=== PATIENT | male | born 1960 | race Caucasian/White ===

== ENCOUNTER → 2018-06-25 11:30 | Outpatient (CLI) | payer OTHER, SELFPAY ==
--- NOTE | 2018-06-25 | DI.US.S_ITS ---
PROCEDURE: US ABDOMEN COMPLETE INDICATIONS: EPIGASTRIC PAIN TECHNIQUE: Real-time scanning was performed of the abdominal and retroperitoneal organs, with image documentation. COMPARISON: None. FINDINGS: Liver: Liver is normal in size and appears hypoechoic. Gallbladder: Gallbladder has been removed. Biliary ducts: Intrahepatic bile ducts are non-dilated. Extrahepatic bile duct caliber measures 4.5 mm. Normal is 6-7 mm or less in diameter, or 10 mm or less post-cholecystectomy. Pancreas: Not visualized. Spleen: Spleen is normal in size and homogeneous in echotexture. Kidneys: Kidneys are normal in size and echotexture. Right kidney measures 11.3 cm long; left kidney measures 12.0 cm long. No hydronephrosis or nephrolithiasis. No solid masses. Within the right kidney there is a 12 less than decubitus 9 mm exophytic focus of hypo-echogenicity. There is no definitive posterior enhancement. Aorta: Visualized aorta is normal in caliber at less than 3 cm. Iliacs: Proximal common iliac arteries are normal in caliber at less than 2.5 cm. IVC: Intrahepatic inferior vena cava is patent. Miscellaneous: No free abdominal fluid. IMPRESSION: 1. Hypoechoic appearing liver as above. This is somewhat nonspecific. While this could be secondary to variation, infiltrative disease cannot be excluded. As clinically indicated, CT is recommended for further evaluation. 2. Hypoechoic renal mass as above. It does not demonstrate characteristic cystic properties. CT is recommended for further evaluation. Dictated by: Margie Loco M.D. on 06/25/2018 at 19:04 Approved by: Margie Loco M.D. on 06/25/2018 at 19:07
== END ==
PROVIDERS: Visit Provider Family Medicine
DX: R10.13 Epigastric pain (principal); N28.89 Other specified disorders of kidney and ureter; Z90.49 Acquired absence of other specified parts of digestive tract
CPT/HCPCS: 76700

== ENCOUNTER → 2018-07-02 10:37 | Outpatient (CLI) | payer OTHER, SELFPAY ==
--- NOTE | 2018-07-02 | DI.CT.S_ITS ---
PROCEDURE: CT ABDOMEN W CON INDICATIONS: ABNORMAL STOOL COLON/RENAL MASS TECHNIQUE: After the administration of oral and intravenous contrast, 5 mm thick sections acquired from the diaphragms to the iliac crests. 5 mm thick coronal and sagittal reformats were acquired. For radiation dose reduction, the following was used: automated exposure control, adjustment of mA and/or kV according to patient size. COMPARISON: [facility], , US ABDOMEN COMPLETE, 06/25/2018, 11:46. FINDINGS: Image quality: Excellent. Lung bases: Lung bases are clear. Heart size is normal. Tiny hiatal hernia. Solid organs: Liver is normal in size and enhancement. No focal hepatic mass. Gallbladder is absent. Biliary system is non dilated. Pancreas enhances normally. Spleen is normal in size and enhancement. There is a 1.3 x 2.3 cm hypoechoic mass in the lateral aspect of spleen demonstrating subtle peripheral enhancement, most likely a hemangioma. No adrenal nodules. Kidneys are normal in size, without hydronephrosis. A 1 cm exophytic nodule is present in the right kidney demonstrating CT density 1.8 HU, consistent with a cyst. Peritoneum and bowel: Contrast enhanced bowel loops appear normal in caliber. No free fluid or air. Nodes and vessels: No retroperitoneal or mesenteric adenopathy by size criteria. Aorta and inferior vena cava are normal in size. Bones: No suspicious bony lesions. No vertebral body compression fractures. Miscellaneous: No ventral hernias. IMPRESSION: 1. No abnormalities in liver identified on CT. 2. There is a 1.3 x 2.2 cm hypoechoic mass in spleen demonstrating subtle peripheral enhancement, most likely a hemangioma. 3. A 1 cm exophytic cyst in right kidney. 4. In this patient with history of colon mass, CT pelvis should be obtained if not already performed elsewhere. Dictated by: Johan Trinidad M.D. on 07/02/2018 at 12:54 Approved by: Johan Trinidad M.D. on 07/02/2018 at 17:19
== END ==
PROVIDERS: PCP Family Medicine; Visit Provider Family Medicine
DX: K63.9 Disease of intestine, unspecified (principal); N28.1 Cyst of kidney, acquired; R16.1 Splenomegaly, not elsewhere classified
CPT/HCPCS: 74160; Q9967

== ENCOUNTER → 2021-05-10 08:01 | Outpatient (CLI) | payer OTHER, SELFPAY ==
[2021-05-10 19:13] LABS: Add Manual Diff / Slide Review NO; Basophils Absolute Auto 0 /uL (0-100); Basophils Percent Auto 0.4 % (0-2); Eosinophils Absolute Auto 300 /uL (0-450); Eosinophils Percent Auto 4.1 % (2-4); Hematocrit 44.2 % (41-53); Hemoglobin 15.1 g/dL (13.5-17.5); Lymphocytes Absolute Auto 1400 /uL (1100-4500); Lymphocytes Percent Auto 22.6 % (25-40); Mean Corpuscular HGB Conc 34.1 % (30-36); Mean Corpuscular Hemoglobin 30.9 PG (26-34); Mean Corpuscular Volume 90.6 fL (80-100); Monocytes Absolute Auto 600 /uL (0-900); Monocytes Percent Auto 9.8 % (3-14); Neutrophils Absolute Auto 4000 /uL (1500-7000); Neutrophils Percent Auto 63.1 % (50-75); Platelet Count 186 X10^3/uL (150-400); Red Blood Cell Count 4.88 X10^6/uL (4.5-5.9); Red Cell Distribution Width 13.4 % (11.6-14.8); White Blood Cell Count 6.3 X10^3/uL (4.5-11.0)
[2021-05-10 19:15] LABS: Prothrombin Time 10.9 SECONDS (10.1-12.7)
[2021-05-10 19:17] LABS: PTT Partial Thromboplastin Tim 33 SECONDS (26.4-36.2)
[2021-05-10 19:30] LABS: Alanine Aminotransferase 11 IU/L (<50); Albumin 4.3 g/dL (3.5-5.0); Albumin Globulin Ratio 1.4 (1.0-2.8); Alkaline Phosphatase 131 U/L (38-126); Aspartate Aminotransferase 20 IU/L (17-59); BUN Creatinine Ratio 14.6 (6-22); Bilirubin Total 0.6 mg/dL (0.2-1.3); Blood Urea Nitrogen 12 mg/dL (9-20); Calcium 9.2 mg/dL (8.4-10.2); Carbon Dioxide 29 mmol/L (22-32); Chloride 106 mmol/L (98-107); Cholesterol 176 mg/dL (140-199); Estimated Glomerular Filt Rate > 60.0 mL/min (>60); Globulin 3.1 g/dL (1.7-4.1); Glucose 93 mg/dL (70-100); HDL Cholesterol 39 mg/dL (40-60); HEMOLYSIS < 15 (0-50); LDL Cholesterol Calculated 109 mg/dL (<100); Potassium 4.8 mmol/L (3.4-5.1); Sodium 139 mmol/L (137-145); Total Protein 7.4 g/dL (6.3-8.2); Triglycerides 138 mg/dL (35-150)
[2021-05-10 20:19] LABS: Vitamin B12 227 pg/mL (239-931)
== END ==
PROVIDERS: PCP Physician Assistant; Visit Provider Physician Assistant
DX: E78.00 Pure hypercholesterolemia, unspecified (principal); F50.89 Other specified eating disorder; Z86.39 Personal history of other endocrine, nutritional and metabolic disease; I75.023 Atheroembolism of bilateral lower extremities
CPT/HCPCS: 80053; 80061; 82607; 85025; 85610; 85730